=== PATIENT | male | born 1965 | race African-American/Black ===

== ENCOUNTER 2017-04-03 08:13 | Emergency (ER) | payer MEDICAID ==
[~2017-04-03] VITALS: Ht 169.5 cm; Wt 103.9 kg
[2017-04-03 08:32] VITALS: Ht 169.5 cm; Wt 103.9 kg
[2017-04-03 09:54] VITALS: BP 131/63
== END 2017-04-03 09:54 | disposition home or self-care (01) ==
LOC: ED 08:13
DX: L03.317 Cellulitis of buttock (principal)
CPT/HCPCS: J3010; J3490

== ENCOUNTER 2017-04-05 07:48 | Inpatient (IN) | payer MEDICAID ==
[~2017-04-05] VITALS: Ht 167.6 cm; Wt 99.8 kg
[2017-04-05 07:57] VITALS: Ht 167.6 cm; Wt 99.8 kg
[2017-04-05 08:50] LABS: PLATELET COUNT 336 x10^3mcL (130-400); RED CELL DISTRIBUTION WIDTH 13.7 % (11.5-14.5)
[2017-04-05] MEDS ORDERED: MIRALAX17 GM/Dose PO (09:26)
[2017-04-05] MEDS ORDERED: BACTRIM DS1 TAB PO (09:27)
[2017-04-05] MEDS ORDERED: NORCO1 TA2 PO (09:27)
[2017-04-05 10:09] LABS: CALCIUM 9.3 mg/dL (8.5-10.1); CARBON DIOXIDE 23.6 mmol/L (21-32); CHLORIDE SERUM 96 mmol/L (98-107); CREATININE SERUM 1.3 mg/dL (0.7-1.3); GFR1 > 60 mL/min; GLUCOSE SERUM 81 mg/dL (74-106); POTASSIUM SERUM 3.6 mmol/L (3.5-5.1); SODIUM SERUM 133 mmol/L (136-145)
[2017-04-05 10:14] LABS: ALKALINE PHOSPHATASE 100 U/L (46-116); ALT/SGPT 40 U/L (16-63); AST/SGOT 31 U/L (15-37); BILIRUBIN TOTAL 0.52 mg/dL (0.20-1.00)
[2017-04-05 10:15] LABS: ALBUMIN 3.1 g/dL (3.4-5.0)
[2017-04-05 10:38] VITALS: BP 132/85
[2017-04-05 10:50] VITALS: BP 132/85
[2017-04-05 11:20] LABS: BAND NEUTROPHIL 2 % (0-10); BASOPHIL 0 % (0-2); MONOCYTE 1 % (0-7); SEGMENTED NEUTROPHILS 92 % (37-75)
[2017-04-05 11:23] LABS: PLATELET MORPHOLOGY PLATELETS NORMAL; rbc morphology (normal/abnorm) ABNORMAL (NORMAL)
[2017-04-05 11:40] LABS: MAGNESIUM 2.2 mg/dL (1.8-2.4); PHOSPHOROUS 3.1 mg/dL (2.5-4.9)
[2017-04-05 11:43] LABS: T3 TOTAL 1.25 ng/mL
[2017-04-05 11:47] LABS: FREE T4 1.29 ng/dL (0.76-1.46); FREE THYROXINE INDEX 3.4 ug/dL (1.4-4.5); T4(THYROXINE) 9.2 ug/dL (4.7-13.3)
[2017-04-05 12:55] VITALS: BP 118/76; BP 132/85
[2017-04-05 17:09] VITALS: BP 128/79
[2017-04-05 18:07] LABS: UA SPECIFIC GRAVITY >=1.030 (1.005-1.035); microscopic required? YES; urine erythrocyte TRACE (NEGATIVE)
[2017-04-05 18:19] LABS: AMPHETAMINE QUAL UR NONE DETECTED (NEG <=1000)
[2017-04-05 21:35] VITALS: BP 101/67
[2017-04-06 05:20] VITALS: BP 128/76
[2017-04-06 08:55] LABS: PLATELET COUNT 360 x10^3mcL (130-400); RED CELL DISTRIBUTION WIDTH 13.6 % (11.5-14.5)
[2017-04-06 08:59] LABS: CALCIUM 8.9 mg/dL (8.5-10.1); CARBON DIOXIDE 26.6 mmol/L (21-32); CREATININE SERUM 1.1 mg/dL (0.7-1.3); GFR1 > 60 mL/min; GLUCOSE SERUM 98 mg/dL (74-106); MAGNESIUM 2.3 mg/dL (1.8-2.4)
[2017-04-06 09:06] LABS: CHLORIDE SERUM 100 mmol/L (98-107); POTASSIUM SERUM 3.8 mmol/L (3.5-5.1); SODIUM SERUM 136 mmol/L (136-145)
[2017-04-06 09:27] VITALS: BP 104/64
[2017-04-06 09:45] LABS: ATYPICAL LYMPH 2 %; BAND NEUTROPHIL 3 % (0-10); BASOPHIL 1 % (0-2); MONOCYTE 6 % (0-7); SEGMENTED NEUTROPHILS 86 % (37-75)
[2017-04-06 09:47] LABS: PLATELET MORPHOLOGY PLATELETS INCREASED; rbc morphology (normal/abnorm) ABNORMAL (NORMAL)
[2017-04-06 13:55] VITALS: BP 137/71
[2017-04-06 16:58] VITALS: BP 107/78
[2017-04-06 21:58] VITALS: BP 138/79
[2017-04-07 06:54] VITALS: BP 119/74
[2017-04-07 07:15] LABS: BASOPHIL % 0.1 % (0-2); PLATELET COUNT 339 x10^3mcL (130-400); RED CELL DISTRIBUTION WIDTH 13.2 % (11.5-14.5)
[2017-04-07 07:29] LABS: CALCIUM 8.8 mg/dL (8.5-10.1); CARBON DIOXIDE 26.4 mmol/L (21-32); CHLORIDE SERUM 103 mmol/L (98-107); GFR1 > 60 mL/min; GLUCOSE SERUM 104 mg/dL (74-106); MAGNESIUM 2.1 mg/dL (1.8-2.4); PHOSPHOROUS 2.9 mg/dL (2.5-4.9); POTASSIUM SERUM 3.8 mmol/L (3.5-5.1); SODIUM SERUM 139 mmol/L (136-145)
[2017-04-07 10:03] VITALS: BP 117/78
[2017-04-07 12:30] VITALS: BP 121/87
[2017-04-07 17:31] VITALS: BP 127/84
[2017-04-07 20:42] VITALS: BP 123/81
[2017-04-08 05:06] VITALS: BP 110/72
[2017-04-08 07:14] LABS: BASOPHIL % 0.1 % (0-2); PLATELET COUNT 359 x10^3mcL (130-400); RED CELL DISTRIBUTION WIDTH 13.4 % (11.5-14.5)
[2017-04-08 07:27] LABS: CALCIUM 8.1 mg/dL (8.5-10.1); CARBON DIOXIDE 24.9 mmol/L (21-32); CHLORIDE SERUM 104 mmol/L (98-107); GFR1 > 60 mL/min; GLUCOSE SERUM 102 mg/dL (74-106); PHOSPHOROUS 3.5 mg/dL (2.5-4.9); POTASSIUM SERUM 3.4 mmol/L (3.5-5.1); SODIUM SERUM 138 mmol/L (136-145)
[2017-04-08 09:45] VITALS: BP 122/75
[2017-04-08] MEDS ORDERED: LEVAQUIN750 MG PO (11:29)
[2017-04-08] MEDS ORDERED: CLEOCIN HCL300 MG PO (11:29)
[2017-04-08] MEDS ORDERED: LAC PO (11:30)
[2017-04-08 14:22] VITALS: BP 122/75
[2017-04-08 14:29] VITALS: BP 121/78
== END 2017-04-08 16:25 | disposition home health service (06) | DRG 720 ==
LOC: ED 07:48 → DU 10:07
PROVIDERS: Emergency Medicine; Family Medicine; Surgery
PROC: 0J9B00Z Drainage of Perineum Subcutaneous Tissue and Fascia with Drainage Device, Open Approach (ICD-10-PCS; principal; 2017-04-07 11:00)
DX: A41.9 Sepsis, unspecified organism (principal); N17.0 Acute kidney failure with tubular necrosis; E87.1 Hypo-osmolality and hyponatremia; E44.1 Mild protein-calorie malnutrition; K61.1 Rectal abscess; F17.210 Nicotine dependence, cigarettes, uncomplicated; E66.9 Obesity, unspecified; Z72.89 Other problems related to lifestyle; Z79.899 Other long term (current) drug therapy; Z68.35 Body mass index [BMI] 35.0-35.9, adult
CPT/HCPCS: 83880; 84439; 94150; C9113; G0480; J0690; J1170; J1644; J1885; J1956; J2270; J2405; J2543; J2704; J3010; J3490; J7030; J7040; J7120; Q0092

== ENCOUNTER 2017-04-13 09:30 | Emergency (ER) | payer MEDICAID ==
[~2017-04-13] VITALS: Ht 167.6 cm; Wt 102.5 kg
[~2017-04-13 09:30] MED LIST: BACTRIM DS1 TAB PO; CLEOCIN HCL300 MG PO; LAC PO; LEVAQUIN750 MG PO; MIRALAX17 GM/Dose PO; NORCO1 TA2 PO
[2017-04-13 09:34] VITALS: BP 135/83; Ht 167.6 cm; Wt 102.5 kg
== END 2017-04-13 12:00 | disposition home or self-care (01) ==
LOC: ED 09:30
DX: L50.9 Urticaria, unspecified (principal)
CPT/HCPCS: J1200; J7512

== ENCOUNTER 2017-05-12 09:55 | Emergency (ER) | payer MEDICAID ==
[~2017-05-12] VITALS: Ht 167.6 cm; Wt 102.0 kg
[2017-05-12 09:58] VITALS: Ht 167.6 cm; Wt 102.0 kg
[2017-05-12 10:48] VITALS: BP 160/98
== END 2017-05-12 10:48 | disposition home or self-care (01) ==
LOC: ED 09:55
DX: T81.4XXD Infection following a procedure, subsequent encounter (principal); K61.1 Rectal abscess

== ENCOUNTER 2017-12-12 12:51 | Inpatient (IN) | payer MEDICAID, OTHER ==
[~2017-12-12] VITALS: Ht 167.6 cm; Wt 93.0 kg
[2017-12-12 13:00] VITALS: Ht 167.6 cm; Wt 93.0 kg
[2017-12-12 14:14] LABS: BASOPHIL % 0.6 % (0-2); PLATELET COUNT 369 x10^3mcL (130-400); RED CELL DISTRIBUTION WIDTH 14.4 % (11.5-14.5)
[2017-12-12 14:31] LABS: CALCIUM 9.9 mg/dL (8.5-10.1); CARBON DIOXIDE 26.7 mmol/L (21-32); CHLORIDE SERUM 105 mmol/L (98-107); CREATININE SERUM 1.2 mg/dL (0.7-1.3); GFR1 > 60 mL/min; GLUCOSE SERUM 98 mg/dL (74-106); POTASSIUM SERUM 4.6 mmol/L (3.5-5.1); SODIUM SERUM 142 mmol/L (136-145)
[2017-12-12 14:36] LABS: ALBUMIN 3.6 g/dL (3.4-5.0); ALKALINE PHOSPHATASE 104 U/L (46-116); ALT/SGPT 34 U/L (16-63); AST/SGOT 21 U/L (15-37); BILIRUBIN TOTAL 0.2 mg/dL (0.20-1.00); TOTAL PROTEIN, SERUM 7.4 g/dL (6.4-8.2)
[2017-12-12 16:13] VITALS: BP 136/81
[2017-12-12 16:58] LABS: CHOLESTEROL/HDL RATIO 4.9; MAGNESIUM 2.3 mg/dL (1.8-2.4); PHOSPHOROUS 3.8 mg/dL (2.5-4.9)
[2017-12-12 20:36] VITALS: BP 126/73
[2017-12-13 05:24] VITALS: BP 119/84
[2017-12-13 06:15] LABS: BASOPHIL % 0.4 % (0-2); PLATELET COUNT 339 x10^3mcL (130-400); RED CELL DISTRIBUTION WIDTH 13.5 % (11.5-14.5)
[2017-12-13 06:34] LABS: CALCIUM 8.9 mg/dL (8.5-10.1); CARBON DIOXIDE 28.5 mmol/L (21-32); CHLORIDE SERUM 105 mmol/L (98-107); CREATININE SERUM 1.2 mg/dL (0.7-1.3); GFR1 > 60 mL/min; GLUCOSE SERUM 96 mg/dL (74-106); POTASSIUM SERUM 4.4 mmol/L (3.5-5.1); SODIUM SERUM 141 mmol/L (136-145)
[2017-12-13 08:56] VITALS: BP 92/71
[2017-12-13 12:51] VITALS: BP 91/46
[2017-12-13 12:55] VITALS: BP 108/70
[2017-12-13 17:47] VITALS: BP 119/74
[2017-12-13 20:59] VITALS: BP 125/83
[2017-12-14 01:11] LABS: AMPHETAMINE QUAL UR NONE DETECTED (See below)
[2017-12-14 04:46] VITALS: BP 123/80
[2017-12-14 06:15] LABS: microscopic required? NO
[2017-12-14 06:46] LABS: BASOPHIL % 0.5 % (0-2); PLATELET COUNT 327 x10^3mcL (130-400)
[2017-12-14 06:48] LABS: CALCIUM 8.9 mg/dL (8.5-10.1); CHLORIDE SERUM 105 mmol/L (98-107); CREATININE SERUM 1.1 mg/dL (0.7-1.3); GFR1 > 60 mL/min; GLUCOSE SERUM 103 mg/dL (74-106); POTASSIUM SERUM 4.6 mmol/L (3.5-5.1); SODIUM SERUM 140 mmol/L (136-145)
[2017-12-14 07:39] LABS: urine erythrocyte NEGATIVE (NEGATIVE)
[2017-12-14 07:49] LABS: AMPHETAMINE QUAL UR NONE DETECTED (See below)
[2017-12-14 08:52] VITALS: BP 120/81
[2017-12-14 11:31] VITALS: BP 120/87
[2017-12-14 16:21] VITALS: BP 127/82
[2017-12-14 21:28] VITALS: BP 125/80
[2017-12-15 05:51] VITALS: BP 108/81
[2017-12-15 06:04] LABS: BASOPHIL % 0.6 % (0-2); PLATELET COUNT 352 x10^3mcL (130-400); RED CELL DISTRIBUTION WIDTH 14.3 % (11.5-14.5)
[2017-12-15 06:19] LABS: CALCIUM 8.6 mg/dL (8.5-10.1); CARBON DIOXIDE 27.6 mmol/L (21-32); CHLORIDE SERUM 108 mmol/L (98-107); CREATININE SERUM 1.1 mg/dL (0.7-1.3); GFR1 > 60 mL/min; GLUCOSE SERUM 107 mg/dL (74-106); POTASSIUM SERUM 4.4 mmol/L (3.5-5.1); SODIUM SERUM 145 mmol/L (136-145)
[2017-12-15 08:56] VITALS: BP 129/78
[2017-12-15 14:07] VITALS: BP 108/69
[2017-12-15] MEDS ORDERED: AMLODIPINE BESYL5 M2 PO (14:14)
[2017-12-15] MEDS ORDERED: ASPIR LOW81 MG PO (14:14)
[2017-12-15] MEDS ORDERED: HCTZ/SPIRONOLAC1 TAB PO (14:16)
[2017-12-15] MEDS ORDERED: CO Q-10300 MG PO (14:19)
[2017-12-15] MEDS ORDERED: CRESTOR5 M1 PO (14:23)
[2017-12-15] MEDS ORDERED: NITROGLYCERIN0.4 MG SL (14:24)
[2017-12-15 17:01] VITALS: BP 108/69
== END 2017-12-15 17:29 | disposition home or self-care (01) | DRG 198 ==
LOC: ED 12:51 → DU 15:03
PROVIDERS: Emergency Medicine; Family Medicine; Internal Medicine
DX: I25.119 Atherosclerotic heart disease of native coronary artery with unspecified angina pectoris (principal); E78.5 Hyperlipidemia, unspecified; F17.210 Nicotine dependence, cigarettes, uncomplicated; F14.10 Cocaine abuse, uncomplicated; I25.2 Old myocardial infarction; Z68.33 Body mass index [BMI] 33.0-33.9, adult
CPT/HCPCS: 83880; A9500; J1885; J2785; Q0092

== ENCOUNTER 2018-04-11 13:53 | Emergency (ER) | payer MEDICAID, OTHER ==
[~2018-04-11] VITALS: Ht 167.6 cm; Wt 100.2 kg
[~2018-04-11 13:53] MED LIST changes: +AMLODIPINE BESYL5 M2 PO; +ASPIR LOW81 MG PO; +CO Q-10300 MG PO; +CRESTOR5 M1 PO; +HCTZ/SPIRONOLAC1 TAB PO; +NITROGLYCERIN0.4 MG SL
[2018-04-11 14:14] VITALS: Ht 167.6 cm; Wt 100.2 kg
[2018-04-11 14:50] LABS: BASOPHIL % 0.4 % (0-2); PLATELET COUNT 274 x10^3mcL (130-400); RED CELL DISTRIBUTION WIDTH 13.7 % (11.5-14.5)
[2018-04-11 14:59] LABS: CALCIUM 8.7 mg/dL (8.5-10.1); CARBON DIOXIDE 23.7 mmol/L (21-32); CHLORIDE SERUM 108 mmol/L (98-107); GFR1 > 60 mL/min; GLUCOSE SERUM 88 mg/dL (74-106); POTASSIUM SERUM 3.7 mmol/L (3.5-5.1); SODIUM SERUM 142 mmol/L (136-145)
[2018-04-11 15:03] LABS: ALBUMIN 3.4 g/dL (3.4-5.0); ALKALINE PHOSPHATASE 83 U/L (46-116); ALT/SGPT 43 U/L (16-63); AST/SGOT 29 U/L (15-37); BILIRUBIN TOTAL 0.26 mg/dL (0.20-1.00); LIPASE 105 IU/L (73-393); TOTAL PROTEIN, SERUM 7.6 g/dL (6.4-8.2)
[2018-04-11 18:35] VITALS: BP 123/89
== END 2018-04-11 18:35 | disposition home or self-care (01) ==
LOC: ED 13:53
PROVIDERS: Emergency Medicine
DX: R10.84 Generalized abdominal pain (principal); R11.10 Vomiting, unspecified; R19.7 Diarrhea, unspecified; F17.210 Nicotine dependence, cigarettes, uncomplicated; Z88.1 Allergy status to other antibiotic agents; Z71.6 Tobacco abuse counseling
CPT/HCPCS: 36415; 99406

== ENCOUNTER 2018-07-09 07:50 | Emergency (ER) | payer MEDICAID, OTHER ==
[~2018-07-09] VITALS: Ht 170.2 cm; Wt 101.2 kg
[2018-07-09 07:54] VITALS: Ht 170.2 cm; Wt 101.2 kg
[2018-07-09 08:37] LABS: BASOPHIL % 0.2 % (0-2); PLATELET COUNT 309 x10^3mcL (130-400)
[2018-07-09 08:40] LABS: CALCIUM 9.6 mg/dL (8.5-10.1); CARBON DIOXIDE 31.2 mmol/L (21-32); CHLORIDE SERUM 101 mmol/L (98-107); CREATININE SERUM 1.3 mg/dL (0.7-1.3); GFR1 > 60 mL/min; GLUCOSE SERUM 100 mg/dL (74-106); SODIUM SERUM 138 mmol/L (136-145)
[2018-07-09 08:41] LABS: RED CELL DISTRIBUTION WIDTH 14.6 % (11.5-14.5)
[2018-07-09 08:54] LABS: ALBUMIN 3.9 g/dL (3.4-5.0); ALKALINE PHOSPHATASE 92 U/L (46-116); ALT/SGPT 69 U/L (16-63); AST/SGOT 34 U/L (15-37); BILIRUBIN TOTAL 0.9 mg/dL (0.20-1.00)
[2018-07-09 11:28] LABS: AMPHETAMINE QUAL UR NONE DETECTED (See below)
[2018-07-09 14:42] VITALS: BP 128/76
== END 2018-07-09 14:42 | disposition home or self-care (01) ==
LOC: ED 07:50
PROVIDERS: Emergency Medicine
DX: F31.9 Bipolar disorder, unspecified (principal); Z88.1 Allergy status to other antibiotic agents
CPT/HCPCS: 36415; G0480